=== PATIENT | female | born 2000 | race Caucasian/White ===

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

== ENCOUNTER 2021-06-28 12:44 | Emergency (ER) | payer BC, OTHER ==
[~2021-06-28] VITALS: Ht 165.1 cm; Wt 77.1 kg
== END 2021-06-28 14:25 | disposition home or self-care (01) ==
LOC: ER 12:55
DX: Z20.822 Contact with and (suspected) exposure to COVID-19 (principal)
CPT/HCPCS: 99283; U0002

== ENCOUNTER 2021-08-03 11:26 | Emergency (ER) | payer BC, OTHER ==
[~2021-08-03] VITALS: Ht 162.6 cm; Wt 98.9 kg
[2021-08-03] MEDS ORDERED: OMEPRAZOLE40 MG PO (11:43)
[2021-08-03] MEDS ORDERED: ZINC50 M1 (11:43)
[2021-08-03] MEDS ORDERED: FISH OIL 1,0001 EAC2 (11:43)
[2021-08-03] MEDS ORDERED: VITAMIN C 500500 MG (11:43)
[2021-08-03] MEDS ORDERED: WELLBUTRIN SR150 MG PO (11:43)
[2021-08-03] MEDS ORDERED: PROZAC20 MG PO (11:43)
[2021-08-03] MEDS ORDERED: KETOROLAC TROMETHAMINE 30 MG/ML VIAL IV STA (12:11)
[2021-08-03] MEDS ORDERED: SODIUM CHLORIDE 0.9% 1000ML 1,000 ML IV SCH (12:15)
[2021-08-03] MEDS ORDERED: KETOROLAC TROMETHAMINE 30 MG/ML VIAL ONE (12:38)
[2021-08-03] MEDS ORDERED: SODIUM CHLORIDE 0.9% 1000ML 1,000 ML ONE (12:39)
== END 2021-08-03 14:18 | disposition home or self-care (01) ==
LOC: FSED 12:05
DX: R07.89 Other chest pain (principal); B34.9 Viral infection, unspecified; R51.9 Headache, unspecified; Z20.822 Contact with and (suspected) exposure to COVID-19
CPT/HCPCS: 70450; 71046; 81003; 81025; 87400; 96374; 99284; J1885; J7030; U0002

== ENCOUNTER → 2022-05-02 | Day surgery (SDC) | payer BC ==
[~2022-05-02] MED LIST changes: +ACETAMINOPHEN-1 EAC4 PO; +ADDERALL XR 1515 MG PO; +BUPIVACAINE HCL 0.5% INJ 30 ML VIAL INJ ONE; +DEXAMETHASONE SOD PHOS INJ 4 MG/ML SDV IV ONE; +FISH OIL 1,0001 EAC2 PO; +LIDOCAINE HCL 2% LOCAL INJ 5 ML SDV VIAL INJ ONE; +MUPIROCIN 2% OINT 22 GM TUBE ONE; +NORETHINDRONE0.35 MG PO; +OMEPRAZOLE40 MG PO; +ONDANSETRON HCL INJ 2MG/ML 2ML 2 MG/ML VIAL IV ONE; +POVIDONE IODINE 0.05% 0.05 % ML PO ONE; +PROPOFOL IV EMULSION 10 MG/ML 20 ML VIAL IV ONE; +PROZAC20 MG PO; +SEVOFLURANE INHAL SOLN 250 ML PEN BTL INH ONE; +VITAMIN C 500500 MG PO; +WELLBUTRIN SR150 MG PO; +XOPENEX0.63 MG/3 INH; +ZINC50 M1; +biotin PO
[2022-05-02 08:05] VITALS: BP 118/74
== END | disposition home or self-care (01) ==
LOC: OR 05:39
PROVIDERS: ATTEND Plastic Surgery
DX: G56.02 Carpal tunnel syndrome, left upper limb (principal); M65.842 Other synovitis and tenosynovitis, left hand; F90.9 Attention-deficit hyperactivity disorder, unspecified type; F32.A Depression, unspecified; Z79.899 Other long term (current) drug therapy
CPT/HCPCS: 25115; 81025; J0690; J1100; J2001; J2405; J2704

== ENCOUNTER → 2022-11-25 | Outpatient (CLI) | payer BC ==
[~2022-11-25] MED LIST changes: -BUPIVACAINE HCL 0.5% INJ 30 ML VIAL INJ ONE; -DEXAMETHASONE SOD PHOS INJ 4 MG/ML SDV IV ONE; -LIDOCAINE HCL 2% LOCAL INJ 5 ML SDV VIAL INJ ONE; -MUPIROCIN 2% OINT 22 GM TUBE ONE; -ONDANSETRON HCL INJ 2MG/ML 2ML 2 MG/ML VIAL IV ONE; -POVIDONE IODINE 0.05% 0.05 % ML PO ONE; -PROPOFOL IV EMULSION 10 MG/ML 20 ML VIAL IV ONE; -SEVOFLURANE INHAL SOLN 250 ML PEN BTL INH ONE
== END ==
LOC: RAD 14:24
PROVIDERS: ATTEND Internal Medicine
DX: M79.671 Pain in right foot (principal); M25.571 Pain in right ankle and joints of right foot

== ENCOUNTER → 2022-12-05 | Outpatient (CLI) | payer BC | LOC: MRI 13:15 | PROVIDERS: ATTEND Internal Medicine | DX: M79.671 Pain in right foot (principal) ==

== ENCOUNTER → 2024-12-20 | Day surgery (SDC) | payer BC ==
[~2024-12-20] MED LIST changes: +FLONASE ALLERG9.9 ML INH; +HYDROXYZINE HCL25 MG PO; +LIDOCAINE HCL 2% LOCAL INJ 5 ML SDV VIAL INJ ONE; +MOTRIN200 MG PO; +PROPOFOL IV EMULSION 10 MG/ML 20 ML VIAL ONE; +VYVANSE40 MG; +ZYRTEC10 M3
[2024-12-20 07:35] VITALS: TEMP 97.4
[2024-12-20 08:05] VITALS: BP 123/86; PULSE 86; RESP 16; O2SAT 98
== END | disposition home or self-care (01) ==
LOC: ENDO 05:51
PROVIDERS: ATTEND Surgery
DX: K21.9 Gastro-esophageal reflux disease without esophagitis (principal); K29.50 Unspecified chronic gastritis without bleeding; K44.9 Diaphragmatic hernia without obstruction or gangrene; K20.90 Esophagitis, unspecified without bleeding; J45.909 Unspecified asthma, uncomplicated; E66.01 Morbid (severe) obesity due to excess calories; E28.2 Polycystic ovarian syndrome; M05.40 Rheumatoid myopathy with rheumatoid arthritis of unspecified site; F41.9 Anxiety disorder, unspecified; Z79.1 Long term (current) use of non-steroidal anti-inflammatories (NSAID); Z79.899 Other long term (current) drug therapy; Z68.41 Body mass index [BMI] 40.0-44.9, adult
CPT/HCPCS: 43239; 81025; 88305; 88342; J2003; J2704

== ENCOUNTER 2025-01-31 07:35 | Observation (INO) | payer BC ==
[~2025-01-31] VITALS: Ht 165.1 cm; Wt 111.1 kg
[2025-01-31] MEDS: SCOPOLAMINE 1 MG PATCH TOP SCH (07:30)
[~2025-01-31 07:35] MED LIST changes: -LIDOCAINE HCL 2% LOCAL INJ 5 ML SDV VIAL INJ ONE; -PROPOFOL IV EMULSION 10 MG/ML 20 ML VIAL ONE; +SEVOFLURANE INHAL SOLN 250 ML PEN BTL ONE
[2025-01-31] MEDS ORDERED: ROCURONIUM BROMIDE 1 ML IV ONE (08:05)
[2025-01-31] MEDS ORDERED: PROPOFOL IV EMULSION 10 MG/ML 20 ML VIAL ONE (08:05)
[2025-01-31] MEDS ORDERED: FENTANYL CITRATE/PF 100MCG/2 ML INJ ONE (08:05)
[2025-01-31] MEDS ORDERED: MIDAZOLAM HCL 2 MG/2 ML VIAL ONE (08:05)
[2025-01-31] MEDS ORDERED: LIDOCAINE HCL 2% LOCAL INJ 5 ML SDV VIAL INJ ONE (08:07)
[2025-01-31] MEDS: CEFAZOLIN SODIUM 2 GM ONE (09:26)
[2025-01-31] MEDS ORDERED: ACETAMINOPHEN 1000 MG/100 ML 100 ML IV ONE (10:59)
[2025-01-31] MEDS ORDERED: HYDROMORPHONE 2MG/ML ONE (11:07)
[2025-01-31] MEDS ORDERED: DEXAMETHASONE SOD PHOS INJ 4 MG/ML SDV ONE (11:16)
[2025-01-31] MEDS ORDERED: ONDANSETRON HCL INJ 2MG/ML 2ML 2 MG/ML VIAL ONE (11:16)
[2025-01-31] MEDS ORDERED: SUGAMMADEX SODIUM 200 MG/2 ML VIAL IV ONE (11:38)
[2025-01-31] MEDS: FENTANYL CITRATE/PF 100MCG/2 ML INJ IV ONE (12:27)
[2025-01-31] MEDS: ONDANSETRON HCL INJ 2MG/ML 2ML 2 MG/ML VIAL IV ONE (12:29)
[2025-01-31] MEDS: PROMETHAZINE 25MG/ NS 50ML (IV) IV ONE (12:53)
[2025-01-31] MEDS: LACTATED RINGER'S 1,000 ML IV SCH (13:46)
[2025-01-31] MEDS: ONDANSETRON HCL INJ 2MG/ML 2ML 2 MG/ML VIAL ONE (13:47)
[2025-01-31] MEDS: PROMETHAZINE HCL (IM) 25 MG/ML VIAL IM ONE (13:47)
[2025-01-31] MEDS: FENTANYL CITRATE/PF 100MCG/2 ML INJ ONE (13:47)
[2025-01-31] MEDS: Morphine 2mg Syringe 2 MG/ML SYR IV PRN (13:48)
[2025-01-31 13:58] VITALS: BP 125/78; PULSE 75; RESP 16; TEMP 97.8; O2SAT 100
[2025-01-31 14:20] VITALS: PULSE 84; RESP 18; O2SAT 97
[2025-01-31] MEDS: SIMETHICONE 80 MG CHEW PO PRN (15:02)
[2025-01-31 16:00] VITALS: BP 132/74; PULSE 72; RESP 18; O2SAT 98
[2025-01-31] MEDS: ONDANSETRON HCL INJ 2MG/ML 2ML 2 MG/ML VIAL IV PRN (17:20)
[2025-01-31 20:00] VITALS: BP 143/81; PULSE 62; RESP 18; TEMP 97.7; O2SAT 98
[2025-01-31] MEDS: ENOXAPARIN SOD INJ 40 MG/0.4 ML SYR SC SCH (20:42)
[2025-02-01] VITALS: BP 128/77; PULSE 60; RESP 16; TEMP 97.7; O2SAT 98
[2025-02-01] MEDS: HYDROCODONE/APAP 7.5MG-325MG 1 EA TAB PO PRN (00:42)
[2025-02-01 05:32] LABS: BASOPHILS % 0.1 % (0.0-1.0); EOSINOPHILS % 0.1 % (0.0-6.0); LYMPHOCYTES % 11.6 % (18.0-39.1); MONOCYTES % 5.2 % (4.4-11.3); NEUTROPHILS % 82.8 % (38.7-80.0); RED CELL DISTRIBUTION WIDTH 12.0 % (11.7-14.4)
[2025-02-01 06:02] VITALS: BP 129/83; PULSE 72; RESP 16; TEMP 97.7; O2SAT 97
[2025-02-01 06:07] LABS: EST GLOMERULAR FILTRATION RATE 125.0 ML/MIN (>=60)
[2025-02-01 06:33] LABS: PHOSPHORUS 3.2 MG/DL (2.3-4.7)
[2025-02-01 08:10] VITALS: BP 130/74; PULSE 68; RESP 20; TEMP 98; O2SAT 97
[2025-02-01] MEDS: ONDANSETRON HCL INJ 2MG/ML 2ML 2 MG/ML VIAL IV PRN (08:28)
[2025-02-01 08:34] VITALS: BP 130/74; PULSE 68; RESP 20; TEMP 98; O2SAT 97
== END 2025-02-01 10:48 | disposition home or self-care (01) ==
LOC: OR 07:35 → PACU V 12:34 → MED/SURG 13:18
PROVIDERS: ADMIT Internal Medicine; ATTEND Internal Medicine
DX: E66.01 Morbid (severe) obesity due to excess calories (principal); Z68.41 Body mass index [BMI] 40.0-44.9, adult; K21.9 Gastro-esophageal reflux disease without esophagitis; K44.9 Diaphragmatic hernia without obstruction or gangrene; E28.2 Polycystic ovarian syndrome; R16.2 Hepatomegaly with splenomegaly, not elsewhere classified; G89.18 Other acute postprocedural pain
CPT/HCPCS: 36415; 43281; 43775; 43999; 47379; 80053; 81025; 83735; 84100; 85025; 88307; 88313; 94799; C1894; G0378 ×2; J0131; J1100; J1171; J1650 ×2; J2003; J2250; J2270 ×2; J2405 ×2; J2550; J2704; J3010; J7121